=== PATIENT | female | born 1995 | race Caucasian/White ===

== ENCOUNTER 2019-01-15 18:56 | Emergency (ER) | payer MEDICAID, OTHER ==
[~2019-01-15] VITALS: Ht 154.9 cm; Wt 45.4 kg
[2019-01-15 19:10] VITALS: BP 134/75; PULSE 82; RESP 18; Ht 154.9 cm; Wt 45.4 kg
--- NOTE | 2019-01-15 20:02 | ERD ---
ER Documentation Chief Complaint Chief Complaint lower abd pain x 2 days HPI 23-year-old female presenting with lower abdominal pain x2 days. Patient states she has pain during intercourse and increased frequency and the urge to urine. Patient states she has burning on urination. Patient does not remember her when her last menstrual cycle was and states she does not know if she is . ROS All systems reviewed and are negative except as per history of present illness. Medications Home Meds Active Scripts Ciprofloxacin Hcl* (Ciprofloxacin Hcl*) 500 Mg Tablet, 500 MG PO BID for 3 Days, TAB Prov:SHUN PAL PA-C 01/15/19 Allergies Allergies: Coded Allergies: No Known Drug Allergies (Verified Allergy, Unknown, 01/15/19) PMhx/Soc Medical and Surgical Hx: pt denies Medical Hx, pt denies Surgical Hx Hx Alcohol Use: No Hx Substance Use: No Hx Tobacco Use: No Smoking Status: Never smoker Physical Exam Vitals Vital Signs Date Temp Pulse Resp B/P (MAP) Pulse Ox O2 O2 Flow FiO2 Time Delivery Rate 01/15/19 97.5 82 18 134/75 100 19:10 (94) Physical Exam GENERAL: The patient is well-appearing, well-nourished, in no acute distress CHEST: Clear to auscultation bilaterally. There are no rales, wheezes or rhonchi. HEART: Regular rate and rhythm. No murmurs, clicks, rubs or gallops. ABDOMEN:Soft, nontender and nondistended. Good bowel sounds. No rebound or guarding. No gross peritonitis. No gross organomegaly or masses. No Stinson sign or McBurney point tenderness. BACK: No midline or flank tenderness. Results 24 hrs Laboratory Tests Test 01/15/19 20:08 01/15/19 20:11 Urine Color YELLOW Urine Clarity SLIGHTLY CLOUDY Urine pH 8.0 Urine Specific [place] 1.017 Urine Ketones NEGATIVE mg/dL Urine Nitrite POSITIVE mg/dL Urine Bilirubin NEGATIVE mg/dL Urine Urobilinogen NEGATIVE mg/dL Urine Leukocyte Esterase NEGATIVE Vida/ul Urine Microscopic RBC 0 /HPF Urine Microscopic WBC 1 /HPF Urine Squamous Epithelial Cells FEW /HPF Urine Bacteria FEW /HPF Urine Hemoglobin NEGATIVE mg/dL Urine Glucose NEGATIVE mg/dL Urine Total Protein NEGATIVE mg/dl POC Beta HCG, Qualitative NEGATIVE Procedures/MDM ED course: Physical exam POC urine UA The patient was stable throughout the ED course. The patient and/or family informed of laboratory and diagnostic imaging results throughout the ED course Medical decision makin-year-old female presented to ER for frequent urination and lower abdominal pain. Patient states she has pain with sexual intercourse. Patient denies any vaginal discharge, pain, foul odor, itching in the region. Patient patient st ates that she does have frequency and dysuria. Patient's physical exam was unremarkable patient's abdominal was soft nontender patient had no CVA tenderness. The patient remained afebrile and stable throughout her entire visit. At this time I have low suspicion for appendicitis, cholecystitis, bowel obstruction, infectious colitis, perforated viscus, pancreatitis,ovarian torsion. Patient's urine test was negative. Patient's UA showed bacteria in the urine and nitrates. Patient is symptomatic and at this time I feel it is necessary to treat the patient for uncomplicated UTI. Patient is being sent home with a prescription for Cipro. Patient denies any allergies to medications and was educated on side effects of the medication. Patient had no further questions upon discharge and was advised to follow-up with her primary care provider. Patient stated she does not have a primary care provider so she was issued resources for the community clinic. Prescription for home: Cipro Discharge: At this time, patient is stable for discharge and outpatient management. I have instructed the patient to follow-up with his\her primary care physician in 1 to 2 days. I have discussed with the patient the possibility of needing to see a specialist for further work-up and imaging studies if symptoms persist. I have instructed the patient to promptly return to the ER for any new or worsening symptoms including increased pain, fever, nausea, vomiting, weakness or LOC. The patient and\or family expressed understanding of and agreement with this plan. All questions were answered. Home care instructions were provided. Disclaimer: Inadvertent spelling and grammatical errors are likely due to EHR\dictation software use and do not reflect on the overall quality of patient care. Also, please note that the electronic time recorded on the note does not necessarily reflect the actual time of the patient encounter. Departure Diagnosis: Primary Impression: UTI (urinary tract infection) Urinary tract infection type: acute cystitis Hematuria presence: without hematuria Qualified Codes: N30.00 - Acute cystitis without hematuria Condition: Stable Patient Instructions: Understanding Urinary Tract Infections (UTIs) Referrals: [facility] Additional Instructions: Follow-up with primary care provider community clinics within 1 to 2 days regarding this visit. If symptoms worsen or persist return immediately SHUN PAL PA-C January 15, 2019 20:02
[2019-01-15] MEDS ORDERED: CIPR500T4 PO (20:28)
== END 2019-01-15 20:42 | disposition home or self-care (01) ==
LOC: FTE 18:56
DX: N30.00 Acute cystitis without hematuria (principal)
CPT/HCPCS: 81001; 81025; Z7502; 99283